=== PATIENT | female | born 1955 | race Two or more races ===

== ENCOUNTER 2019-09-30 10:06 | Outpatient (CLI) | payer MEDICARE ==
[~2019-09-30] VITALS: Ht 157.5 cm; Wt 103.4 kg
[2019-09-30] MEDS ORDERED: LEVOTHYROXINE75 MCG ORAL (11:14)
[2019-09-30 11:15] VITALS: BP 142/76
--- NOTE | 2019-09-30 17:30 | Consultation ---
DATE OF CONSULTATION: 09/30/2019 GASTROENTEROLOGY CONSULTATION CONSULTING PHYSICIAN: Josr Piedra M.D. CHIEF COMPLAINT: Liver cysts, fatty liver, need for colonoscopy. PAST MEDICAL HISTORY: History of thyroid cancer. PAST SURGICAL HISTORY: Appendectomy in 2016. MEDICATIONS: Synthroid. FAMILY HISTORY: Noncontributory. SOCIAL HISTORY: The patient denies any tobacco, alcohol, or illicit drug abuse. ALLERGIES: No known allergies. REVIEW OF SYSTEMS: A 10-point review of systems was performed and positives for abdominal pain. PHYSICAL EXAMINATION: VITAL SIGNS: Temperature 97.6, pulse is 65, respirations 20, blood pressure is 140/70. HEENT: Normocephalic and atraumatic. Sclerae anicteric. NECK: Supple. No evidence of lymphadenopathy. CARDIOVASCULAR: Regular rate and rhythm. Plus S1 and S2. No obvious murmur. LUNGS: Clear to auscultation bilaterally. ABDOMEN: Positive bowel sounds. Soft, nontender. No rebound. No guarding. No peritoneal sign. EXTREMITIES: No cyanosis. No clubbing. No edema. ASSESSMENT: This is a 64-year-old female: 1. Multiple small liver cysts. 2. Fatty liver. 3. Need for colonoscopy. PLAN: At this time, liver seems to be very and low-attenuation lesions, small, too hard to characterize. Based on the imaging studies, seems to be benign. The patient needs to follow up abdominal ultrasound in 3 months. In terms of colonoscopy, last one was over 10 years ago. The patient needs a colonoscopy, we will try to get authorization and schedule for colonoscopy. Josr Piedra M.D. DR: JENNIFFER JOB#: [id number] CC:
== END 2019-09-30 12:06 | disposition home or self-care (01) ==
LOC: PAN 10:06
DX: R10.9 Unspecified abdominal pain (principal); Z85.850 Personal history of malignant neoplasm of thyroid; Z79.899 Other long term (current) drug therapy; Z90.89 Acquired absence of other organs; K76.89 Other specified diseases of liver; K76.0 Fatty (change of) liver, not elsewhere classified